=== PATIENT | male | born 1935 | race African-American/Black ===

== ENCOUNTER 2023-12-14 19:23 | Emergency (ER) | payer MEDICARE, SELFPAY ==
--- NOTE | ~2023-12-14 | CT_ITS ---
CT brain wo con Ordering provider: Mikey Huffman APRN History: 88 years Male with . fell hit head . Comparison: None. Technique: CT of the head without contrast. Radiation reduction technique utilized. The dose-length product was 681 mGy-cm. FINDINGS: BRAIN PARENCHYMA AND CSF SPACES: Mild leukoaraiosis and diffuse cortical atrophy. Mild atheromatous d isease. No midline shift, mass effect or hemorrhage. The brain parenchyma and CSF spaces are otherwi se normal. VISUALIZED PARANASAL SINUSES: Minimal right ethmoid sinus disease. MASTOIDS: Well aerated. BONES: The bones appear intact. SOFT TISSUES: Visualized nasopharynx is normal. Scalp hematoma is seen in the frontal area. Otherwis e, Superficial soft tissues are normal. IMPRESSION: No acute intracranial findings. Reviewed, dictated and finalized at location A.
[2023-12-14 19:25] VITALS: BP 120/90; PULSE 86; RESP 15; TEMP 36.4; O2SAT 98
--- NOTE | 2023-12-14 19:39 | ED.FALL ---
HPI - Fall General Chief Complaint: Fall Stated Complaint: fall, head injury Time Seen by Provider: 12/14/23 19:40 Source: patient Mode of arrival: ambulatory Limitations: no limitations History of Present Illness HPI Narrative: Elgin is an 88-year-old male patient presenting to the emergency room today with complaints of a ground level fall. He reports he was leaning over his chair when he fell and struck his head on the ground at the [facility]. He denies any loss of consciousness. Fall was witnessed. Does have a small abrasion/ cut to the middle of his forehead with localized swelling. He denies any visual changes or neck pain. Related Data Home Medications Medication Instructions Recorded Confirmed No Home Medications 12/04/23 12/04/23 Allergies Allergy/AdvReac Type Severity Reaction Status Date / Time No Known Allergies Allergy Verified 12/14/23 19:31 Review of Systems Review of Systems: Pertinent positives per HPI. Patient denies any fever, chills, rash, headache, visual changes, dizziness, cough, runny nose, sore throat, shortness of breath, chest pain, palpitations, nausea, vomiting, diarrhea, constipation, abdominal pain, or any urinary issues. PMFSH Social History Social History Smoking status: Former smoker Comments At the time of my signature, I reviewed and agree with the nursing past medical, surgical, social, and family history. There is no relevant family history pertinent to the patient complaint. Exam Narrative: General: Well-developed, well nourished, in no apparent distress Head: Normocephalic, small superficial cut to the mid forehead with localized swelling- redness/ contusion measuring approximately 2.5 cm by 2.5 cm Eyes: Pupils equally round and reactive to light bilaterally, EOM intact, sclera and conjunctive clear, no discharge, lids normal Ears: TMs intact and clear, ear canals clear, no drainage, grossly hearing normal. Nose: Nares patent, no discharge, no inflammation, no sinus tenderness. Mouth: Oropharynx without lesions or masses, good dentition, MMM. Tongue midline, even rise and fall of uvula Neck: Supple, trachea midline, no enlargement of anterior or posterior cervical nodes, no thyroid masses or goiter palpable. Cardio: Regular rate and rhythm, s1 and s2 normal, no murmur appreciated. Resp: Clear to auscultation bilaterally anteriorly and posteriorly, no rhonchi, rales, wheezing or rubs Musculoskeletal: No deformity, non-tender to palpation, grossly normal range of motion, muscle strength strong and equal, peripheral pulse strong, no edema, no cyanosis, normal gait and station Neuro: Alert and oriented x2, no focal deficits, cranial nerves I through XII intact, muscle strength 4 out of 5, sensation intact bilaterally, Course Course Emergency Course: Portions of this record may have been created with voice recognition software. Vital Signs Vital signs: Vital Signs Temperature 36.4 C L 12/14/23 19:25 Pulse Rate 86 12/14/23 19:25 Respiratory Rate 15 12/14/23 19:25 Blood Pressure 120/90 12/14/23 19:25 Pulse Oximetry 98 12/14/23 19:25 Oxygen Delivery Room Air 12/14/23 19:25 Temperature 36.4 C L 12/14/23 19:25 Pulse Rate 86 12/14/23 19:25 Respiratory Rate 15 12/14/23 19:25 Blood Pressure 120/90 12/14/23 19:25 Pulse Oximetry 98 12/14/23 19:25 Oxygen Delivery Room Air 12/14/23 19:25 Vital signs reviewed MDM - Fall MDM Narrative Medical decision making narrative: At the time of visit patient is resting comfortably on the exam table. Patient appears to be nontoxic. Diagnostics: CT head is negative for any acute intracranial process. Does show soft tissue swelling over the forehead Plan: I suspect patient had a mechanical fall. CT of the head is normal. Tetanus shot was updated. Supportive measures were discussed with the pa
[2023-12-14] MEDS: TETANUS,DIPHTHERIA,AC PERTUSSIS ADULT (0.5 ML) BOOSTRIX IM (19:49)
[2023-12-14 21:50] VITALS: BP 122/88; PULSE 79; RESP 16; O2SAT 100
== END 2023-12-14 21:50 | disposition home or self-care (01) ==
LOC: ANHED 20:23
PROVIDERS: Emergency Provider Nurse Practitioner Family
DX: S01.81XA Laceration without foreign body of other part of head, initial encounter (principal); Z23 Encounter for immunization; Z87.891 Personal history of nicotine dependence; W18.39XA Other fall on same level, initial encounter
CPT/HCPCS: 70450; 90471; 90715; 99284

== ENCOUNTER 2025-03-27 08:56 | Emergency (ER) | payer MEDICARE, SELFPAY ==
--- NOTE | ~2025-03-27 | CT_ITS ---
CT HEAD NON-CONTRAST Clinical History: fall, laceration to head Comparison: 12/14/2023 Technique: Unenhanced axial images skull base to vertex Coronal, sagittal reformats CT images acquired with automatic exposure control for dose reduction DLP: 1584 mGy-cm Findings: Age-related atrophy. White matter chronic microvascular ischemic changes. Small subarachnoid blood right temporal lobe, parietal lobe. And bifrontal lobes. Sulci, ventricles: Unremarkable. No evidence acute territorial infarct. No mass effect, midline shift. Bony calvarium intact. Visualized paranasal sinuses: Right side opacified. Mastoid air cells: Clear. IMPRESSION: 1. Small subarachnoid blood right temporal lobe, parietal lobe, and bifrontal lobes. 2. Right mastoid air cells opacified. Worrisome for occult temporal bone fracture if trauma in this region. Reviewed, dictated and finalized at location R. ET COVERER IMPRESSION: 1. Small subarachnoid blood right temporal lobe, parietal lobe, and bifrontal lobes. 2. Right mastoid air cells opacified. Worrisome for occult temporal bone fract ure if trauma in this region.
[2025-03-27 08:58] VITALS: BP 115/77; PULSE 50; RESP 12; TEMP 36.4; O2SAT 97
--- NOTE | 2025-03-27 09:16 | PC.NURSE ---
This RN spoke with Amy at [facility] who confirmed pt. is on hospice with [facility]. This RN spoke with pt. nurse at [facility], Suma - phone # [phone]. Suma already let pt. son and daughter know of pt. fall. Family is requesting a head CT and laceration repair if needed.
--- NOTE | 2025-03-27 09:44 | ED_ITS ---
HPI - Fall General Chief Complaint: Fall Stated Complaint: fall out of wheelchair Time Seen by Provider: 03/27/25 09:36 History of Present Illness HPI Narrative: Patient is an 89-year-old male with history of dementia and CVA who presents ER after falling out of his chair and striking his head on the ground. Unknown LOC. He is on hospice. He is on a baby aspirin. There is a laceration lateral to the left eye. Related Data Home Medications ?Medication ?Instructions ?Recorded ?Confirmed ?Last Taken ?Type No Home Medications 12/04/23 01/29/24 U nknown History Allergies Allergy/AdvReac Type Severity Reaction Status Date / Time No Known Allergies Allergy Verified 03/27/25 09:06 Review of Systems Review of Systems: ROS unobtainable: Yes unobtainable due to mental status PMFSH Past Medical History Medical History (Updated 03/27/25 @ 11:26 by Butch Tipton MD) CVA (cerebral vascular accident) Dementia Exam Narrative: GENERAL: Well-appearing, well-nourished, and in no acute distress. HEAD: Normocephalic, atraumatic. ENT: Mucous membranes moist. 2 cm laceration lateral to left eye. NECK: Supple. No midline tenderness. CHEST: Clear to auscultation. No respiratory distress. HEART: Regular rate and rhythm. Normal peripheral pulses.. EXTREMITIES: Normal range of motion. No edema. SKIN: Warm, dry, no rash. NEURO: Alert and oriented x0. PSYCH: Normal mood and affect. Course Course Emergency Course: Discussed with patients son Charles and daughter Richard. The plan is comfort forcused care through [facility] which is already set up. Suma the hospice nurse was contacted and she will go out and evaluate the patient at [facility]. Vital Signs Vital signs: Vital Signs Temperature 97.6 F 03/27/25 08:58 Pulse Rate 50 L 03/27/25 08:58 Respiratory Rate 12 03/27/25 08:58 Blood Pressure 115/77 03/27/25 08:58 Pulse Oximetry 97 03/27/25 08:58 Oxygen Delivery Room Air 03/27/25 08:58 Temperature 97.6 F 03/27/25 08:58 Pulse Rate 50 L 03/27/25 08:58 Respiratory Rate 12 03/27/25 08:58 Blood Pressure 115/77 03/27/25 08:58 Pulse Oximetry 97 03/27/25 08:58 Oxygen Delivery Room Air 03/27/25 08:58 Procedures Laceration Laceration 1: Date: 03/27/25 Time: 09:40 Site: face Side (If applicable): left Size (cm): 2 Description: linear and flap Depth: simple, single layer Local Anesthetic: lidocaine 1% and with epi Amount of anesthesia used (mL): 2 Pre-repair: wound explored and irrigated ====== Skin Level ====== Skin layer closed with: nylon Size (cm): 5-0 Number of sutures: 4 Technique: simple, interrupted ====== Subcutaneous Layer ====== ====== Muscle Layer ====== ====== Tendon Layer ====== MDM - Fall Differential Diagnosis Differential diagnosis: Likely other (Subarachnoid hemorrhage, subdural h emorrhage, epidural hemorrhage, skull fracture) Imaging Data Radiologist's impression: ITS Impressions Head CT 03/27/25 10:18 IMPRESSION: 1. Small subarachnoid blood right temporal lobe, parietal lobe, and bifrontal lobes. 2. Right mastoid air cells opacified. Worrisome for occult temporal bone fracture if trauma in this region. Discharge Plan Discharge Clinical Impression: Subarachnoid bleed Patient Disposition: Home Condition: Serious Instructions: Subarachnoid Hemorrhage (DC) Additional Instructions: You have small bleeding within her brain. This could vault and worsen. Your going back to your facility on hospice. Patient Language: Portuguese Prescriptions: No Action No Home Medications Follow-up/Referrals: Marcos,Liam Hernandez DO [Primary Care Provider, Unknown] - 1 Week
--- NOTE | 2025-03-27 11:33 | PC.NURSE ---
Report called to Amy at [facility]. All questions answered.
[2025-03-27 12:30] VITALS: BP 139/70; PULSE 81; RESP 16; O2SAT 99
== END 2025-03-27 12:30 ==
PROVIDERS: Emergency Provider Emergency Medicine; PCP Internal Medicine
DX: S01.81XA Laceration without foreign body of other part of head, initial encounter (principal); W07.XXXA Fall from chair, initial encounter; F03.90 Unspecified dementia, unspecified severity, without behavioral disturbance, psychotic disturbance, mood disturbance, and anxiety; Z86.73 Personal history of transient ischemic attack (TIA), and cerebral infarction without residual deficits
CPT/HCPCS: 12011; 70450; 99284